=== PATIENT | female | born 1945 | race Two or more races ===

== ENCOUNTER 2017-10-26 09:50 | Inpatient (IN) | payer MEDICARE, OTHER ==
[~2017-10-26] VITALS: Ht 157.5 cm; Wt 82.5 kg
[2017-10-26] MEDS ORDERED: DEXTROSE 50%, 50ML SYRINGE ONE ×2 (10:35→11:54)
[2017-10-26] MEDS ORDERED: DEXTROSE 10% 1,000 ML IV SCH ×2 (11:00→15:00)
[2017-10-26] MEDS ORDERED: DEXTROSE 10%, 1,000ML IV ONE ×2 (11:00→11:40)
[2017-10-26 11:22] LABS: BASOPHILS # (AUTO) 0.02 x10^3/uL (0-0.1); BASOPHILS % (AUTO) 0 % (0-1); EOSINOPHILS # (AUTO) 0.16 x10^3/uL (0-0.4); EOSINOPHILS % (AUTO) 2 % (1-7); LYMPHOCYTES # (AUTO) 1.45 x10^3/uL (1-3.4); LYMPHOCYTES % (AUTO) 20 % (22-44); MD NO; MEAN CORPUSCULAR HEMOGLOBIN 31.5 pg (27.0-34.8); MEAN CORPUSCULAR HGB CONC 33.3 g/dL (32.4-35.8); MEAN CORPUSCULAR VOLUME 94.4 fL (80-100); MEAN PLATELET VOLUME 7.6 fL (7.4-10.4); MONOCYTES # (AUTO) 0.37 x10^3/uL (0.2-0.8); MONOCYTES % (AUTO) 5 % (2-9); NEUTROPHILS # (AUTO) 5.11 x10^3/uL (1.8-6.8); NEUTROPHILS % (AUTO) 72 % (42-75); PLATELET COUNT 256 x10^3/uL (130-400); RED BLOOD COUNT 3.79 x10^6/uL (3.82-5.3); RED CELL DISTRIBUTION WIDTH 13.7 % (9.6-15.2)
[2017-10-26 11:30] LABS: INTERNATIONAL NORMALIZED RATIO 1.08 (0.93-1.1); PROTHROMBIN TIME 11.2 Seconds (9.6-11.5)
[2017-10-26] MEDS ORDERED: DEXTROSE 50%, 50ML SYRINGE IVPush ONE ×2 (11:30→12:00)
[2017-10-26 11:34] LABS: ALANINE AMINOTRANSFERASE 15 U/L (12-78); ALBUMIN 2.8 g/dL (3.4-5.0); ANION GAP 7 mmol/L (5-15); CALCIUM 8.4 mg/dL (8.5-10.1); CHLORIDE 110 mmol/L (98-107); CREATININE 0.69 mg/dL (0.55-1.02)
[2017-10-26 11:39] LABS: ALKALINE PHOSPHATASE 53 U/L (45-117); BILIRUBIN,TOTAL 0.3 mg/dL (0.2-1.0); TOTAL PROTEIN 6.3 g/dL (6.4-8.2); TROPONIN I < 0.015 ng/mL (0.000-0.045)
[2017-10-26] MEDS ORDERED: SOTA160T PO (13:37)
[2017-10-26] MEDS ORDERED: INSU100C SQ-INSULIN (13:37)
[2017-10-26] MEDS ORDERED: INSU100V8 SQ (13:37)
[2017-10-26] MEDS ORDERED: HYDR200T72 PO (13:37)
[2017-10-26] MEDS ORDERED: LEVO112T2 PO (13:37)
[2017-10-26] MEDS ORDERED: APIX5TAB PO (13:40)
[2017-10-26] MEDS ORDERED: MONT10TA9 PO (13:40)
[2017-10-26] MEDS ORDERED: DENO60DI IM (13:40)
[2017-10-26 13:45] LABS: CULTURE INDICATED? YES; MICROSCOPIC INDICATED
[2017-10-26] MEDS ORDERED: METH2.5T PO (13:49)
[2017-10-26] MEDS ORDERED: LISI2.5T PO (13:49)
[2017-10-26] MEDS ORDERED: BIMA2.5D EACHEYE (13:49)
[2017-10-26] MEDS ORDERED: OMEP40CA6 PO (13:49)
[2017-10-26] MEDS ORDERED: NORT10SO PO (13:49)
[2017-10-26] MEDS ORDERED: D5%-0.45% NACL 1,000 ML IV SCH (13:50)
[2017-10-26] MEDS ORDERED: ENOXAPARIN 40 MG/0.4 ML SQ SCH (14:00)
[2017-10-26] MEDS ORDERED: GLUCAGON 1 MG IM PRN (14:00)
[2017-10-26] MEDS ORDERED: LIDODERM 5% PATCH TD PRN (14:00)
[2017-10-26] MEDS ORDERED: GABAPENTIN 300 MG CAPSULE PO PRN (14:00)
[2017-10-26] MEDS ORDERED: DEXTROSE 4 GM TAB.CHEW PO PRN (14:00)
[2017-10-26] MEDS ORDERED: ACETAMINOPHEN 325 MG TABLET PO PRN (14:00)
[2017-10-26] MEDS ORDERED: DEXTROSE 50%, 50ML SYRINGE IVPush PRN (14:00)
[2017-10-26] MEDS ORDERED: LABETALOL 5MG/ML, 20ML IVPush PRN (14:00)
[2017-10-26 14:36] LABS: HEMOGLOBIN A1C 6.3 % (4.2-6.3)
[2017-10-26] MEDS ORDERED: MONTELUKAST MC SCH (15:00)
[2017-10-26] MEDS ORDERED: SOTALOL MC SCH (15:00)
[2017-10-26] MEDS ORDERED: METHOTREXATE MC SCH (15:00)
[2017-10-26 17:43] LABS: TROPONIN I < 0.015 ng/mL (0.000-0.045)
[2017-10-26] MEDS ORDERED: DEXTROSE 5% 1,000 ML IV SCH (18:30)
[2017-10-26] MEDS: DEXTROSE 5% 1,000 ML IV SCH (21:29)
[2017-10-26] MEDS: APIXABAN 5 MG TABLET PO SCH (21:29)
[2017-10-26] MEDS: SODIUM CHLORIDE FLUSH 10ML SYR IVF SCH (21:29)
[2017-10-26] MEDS: SOTALOL 80MG TABLET PO SCH (21:29)
[2017-10-27 04:00] VITALS: BP 114/62
[2017-10-27 04:39] LABS: MD NO
[2017-10-27 04:49] LABS: CHLORIDE 107 mmol/L (98-107)
[2017-10-27 04:58] LABS: ANION GAP 7 mmol/L (5-15); BASOPHILS # (AUTO) 0.03 x10^3/uL (0-0.1); BASOPHILS % (AUTO) 0 % (0-1); CALCIUM 8.3 mg/dL (8.5-10.1); EOSINOPHILS # (AUTO) 0.14 x10^3/uL (0-0.4); EOSINOPHILS % (AUTO) 2 % (1-7); LYMPHOCYTES # (AUTO) 1.77 x10^3/uL (1-3.4); LYMPHOCYTES % (AUTO) 19 % (22-44); MEAN CORPUSCULAR HEMOGLOBIN 32.5 pg (27.0-34.8); MEAN CORPUSCULAR HGB CONC 34.2 g/dL (32.4-35.8); MEAN PLATELET VOLUME 8.2 fL (7.4-10.4); MONOCYTES # (AUTO) 0.43 x10^3/uL (0.2-0.8); MONOCYTES % (AUTO) 5 % (2-9); NEUTROPHILS # (AUTO) 6.83 x10^3/uL (1.8-6.8); NEUTROPHILS % (AUTO) 74 % (42-75); PLATELET COUNT 247 x10^3/uL (130-400); RED BLOOD COUNT 3.81 x10^6/uL (3.82-5.3); RED CELL DISTRIBUTION WIDTH 13.9 % (9.6-15.2)
[2017-10-27 04:59] LABS: ALANINE AMINOTRANSFERASE 15 U/L (12-78); ALBUMIN 2.8 g/dL (3.4-5.0); ALKALINE PHOSPHATASE 54 U/L (45-117); BILIRUBIN,TOTAL 0.6 mg/dL (0.2-1.0); TOTAL PROTEIN 6.3 g/dL (6.4-8.2)
[2017-10-27] MEDS: DEXTROSE 5% 1,000 ML IV SCH (05:05)
[2017-10-27] MEDS ORDERED: MAGNESIUM SULFATE PMX 2GM/50ML 50 ML IV ONE (05:30)
[2017-10-27] MEDS ORDERED: LEVOTHYROXINE 112 MCG TABLET PO SCH (06:00)
[2017-10-27] MEDS: SOTALOL 80MG TABLET PO SCH (08:44)
[2017-10-27] MEDS: APIXABAN 5 MG TABLET PO SCH (08:44)
[2017-10-27] MEDS: SODIUM CHLORIDE FLUSH 10ML SYR IVF SCH (08:45)
[2017-10-27] MEDS ORDERED: HYDROXYCHLOROQUINE 200 MG TABLET PO SCH (09:00)
[2017-10-27] MEDS ORDERED: LISINOPRIL 5 MG TABLET PO SCH (09:00)
[2017-10-27] MEDS ORDERED: OMEPRAZOLE 20 MG CAPSULE.DR PO SCH (09:00)
[2017-10-27] MEDS ORDERED: MONTELUKAST 10 MG TABLET PO SCH (09:00)
[2017-10-27] MEDS ORDERED: METHOTREXATE 2.5 MG TABLET PO SCH (09:00)
== END 2017-10-27 12:12 | disposition home or self-care (01) | DRG 637 ==
LOC: ED 12:06 → EDIP 12:07 → ED 12:18 → CCU 14:37 → DCLOUNGE 10-27 11:58
PROVIDERS: ADMIT Hospitalist; ATTEND Hospitalist
DX: E11.649 Type 2 diabetes mellitus with hypoglycemia without coma (principal); G93.40 Encephalopathy, unspecified; D68.9 Coagulation defect, unspecified; I10 Essential (primary) hypertension; I48.91 Unspecified atrial fibrillation; M19.90 Unspecified osteoarthritis, unspecified site; Z79.4 Long term (current) use of insulin; T50.995A Adverse effect of other drugs, medicaments and biological substances, initial encounter; Y92.89 Other specified places as the place of occurrence of the external cause; Z88.0 Allergy status to penicillin
CPT/HCPCS: 71045; 80053; 80307; 81001; 82140; 82962; 83036; 83605; 83735; 84100; 84484; 85025; 85610; 87081; 87086; 93005; 93306; 96374; 99291; J7070; J3475